=== PATIENT | female | born 1965 | race Caucasian/White ===

== ENCOUNTER 2022-06-21 07:46 | Outpatient (CLI) | payer OTHER, SELFPAY | END 2022-06-21 07:47 | disposition home or self-care (01) | LOC: RAD 07:47 | PROVIDERS: PCP Physician Assistant Medical; Visit Provider Emergency Medicine | DX: R60.0 Localized edema (principal) | CPT/HCPCS: 93306 ==

== ENCOUNTER 2022-09-30 10:20 | Outpatient (CLI) | payer OTHER, SELFPAY ==
[2022-09-30 14:37] LABS: Albumin* 4.6 g/dL (3.3-5.0)
[2022-09-30 14:38] LABS: Chloride* 101 mmol/L (96-114); Potassium* 5.4 mmol/L (3.6-5.1); Sodium* 137 mmol/L (135-149)
[2022-09-30 14:40] LABS: Aspartate Amino Transferase* 23 U/L (12-35); Bilirubin Total* 0.3 mg/dL (0.1-1.5); Carbon Dioxide* 29 mmol/L (20-32); Creatinine* 0.7 mg/dL (0.5-1.5); Estimated Glomerular Filt Rate 101 ml/min; Total Protein* 7.1 g/dL (6.0-8.3)
[2022-09-30 14:41] LABS: Alanine Aminotransferase* 23 U/L (4-35); Alkaline Phosphatase* 99 U/L (40-150); Blood Urea Nitrogen* 13 mg/dL (7-30); Calcium* 9.8 mg/dL (8.4-10.6); Glucose* 94 mg/dL (60-115)
[2022-10-03 18:05] LABS: Protein C Functional 182 % (83-168); Protein S Functional 133 % (57-131)
[2022-10-03 23:52] LABS: von WillebrandFactorAntigen 222 % (52-214); vonWillebrandFactorActivityRCF 282 % (51-215)
--- NOTE | 2022-10-22 09:32 | ONC.NURNOTE ---
Addendum entered by Addis Lim RN 11/21/22 10:11: This patient was discussed with Dr. Mcgregor yesterday, and per Dr. Mcgregor she is not an appropriate referral. She said that we do not seen patients with a family history of clotting, but if patient gets a clot - we are happy to see her. Patient and clinic were notified. Original Note: Received referral from Dr. Paniagua with elevated protein S and C. Patient is being seen by vascular and having second procedure completed on 10/28/2022. [employer] requested that patient have notes from office sent to us, and patient scheduled in January d/t hematology availability.
== END 2022-09-30 10:21 | disposition home or self-care (01) ==
PROVIDERS: PCP Family Medicine; Visit Provider Family Medicine
DX: R06.02 Shortness of breath (principal); R60.0 Localized edema
CPT/HCPCS: 80053; 85240; 85245; 85246; 85303; 85306

== ENCOUNTER 2023-05-12 11:47 | Outpatient (CLI) | payer OTHER, SELFPAY | END 2023-05-12 11:48 | disposition home or self-care (01) | PROVIDERS: PCP Family Medicine; Visit Provider Family Medicine | DX: Z00.00 Encounter for general adult medical examination without abnormal findings (principal); E78.2 Mixed hyperlipidemia; E66.01 Morbid (severe) obesity due to excess calories; Z13.1 Encounter for screening for diabetes mellitus; Z13.6 Encounter for screening for cardiovascular disorders | CPT/HCPCS: 80053; 80061; 82043; 82570; 84443 ==

== ENCOUNTER 2023-05-26 15:31 | Outpatient (CLI) | payer OTHER, SELFPAY | END 2023-05-26 15:32 | disposition home or self-care (01) | LOC: NFLDREF 05-27 10:00 | PROVIDERS: PCP Family Medicine; Referring Provider Family Medicine; Visit Provider Family Medicine | DX: E87.5 Hyperkalemia (principal) | CPT/HCPCS: 80048 ==

== ENCOUNTER 2023-06-05 14:46 | Outpatient (CLI) | payer OTHER, SELFPAY ==
--- NOTE | 2023-06-05 15:00 | CRLHL7_ITS ---
For Patients: As a result of the Cures Act, medical imaging exams and procedure reports are released immediately into your electronic medical record. You may view this report before your referring provider. If you have questions, please contact your health care provider. INDICATION: Edema. History of bilateral lower extremity superficial venous intervention. COMPARISON: None. TECHNIQUE: The bilateral lower extremity veins were examined with figueroa-scale ultrasound, color-flow and Doppler spectral analysis. Compressibility of the veins by transducer pressure was used to evaluate the presence or absence of DVT/SVT at sites per exam specific protocol. Assessment of venous competence was performed by Doppler spectral analysis and was performed and documented at exam specific sites in an upright position for venous insufficiency studies. FINDINGS: DEEP SYSTEM: RIGHT: Vessel: DVT: No. CFV: Competent. DVT: No. SFV Prox: Competent. DVT: No. SFV Mid: Competent. DVT: No. SFV Distal: Competent. DVT: No. Pop: Competent. DVT: No. PTV1: Competent. DVT: No. PTV2: Competent. LEFT: Vessel: DVT: No. CFV: Competent. DVT: No. SFV Prox: Competent. DVT: No. SFV Mid: Competent. DVT: No. SFV Distal: Competent. DVT: No. Pop: Competent. DVT: No. PTV1: Competent. DVT: No. PTV2: Competent. SUPERFICIAL SYSTEM: RIGHT: Vessel: SFJ: 10 mm. Competent. LEFT: SFJ: 8 mm. Competent. Bilateral greater and lesser saphenous veins demonstrate post-intervention changes and are not patent. IMPRESSION: 1. Right lower extremity: -no deep venous thrombosis or incompetence. -history of greater and lesser saphenous vein intervention. Saphenofemoral junction is competent. 2. Left lower extremity: -no deep venous thrombosis or incompetence. -history of greater and lesser saphenous vein intervention. Saphenofemoral junction is competent. Dictated by So Underwood MD @ 06/05/2023 9:33:10 PM XIMENA/Dictated by: So Underwood MD @ 06/05/2023 9:14:00 PM (Electronically Signed)
== END 2023-06-05 14:47 | disposition home or self-care (01) ==
LOC: US 14:46
PROVIDERS: PCP Family Medicine; Visit Provider Family Medicine
DX: R60.0 Localized edema (principal)
CPT/HCPCS: 93970

== ENCOUNTER 2023-07-08 07:51 | Outpatient (CLI) | payer OTHER, SELFPAY ==
--- NOTE | 2023-07-08 08:15 | CRLHL7_ITS ---
For Patients: As a result of the Century Cures Act, medical imaging exams and procedure reports are released immediately into your electronic medical record. You may view this report before your referring provider. If you have questions, please contact your health care provider. BILATERAL SCREENING MAMMOGRAM WITH COMPUTER-AIDED DETECTION AND TOMOSYNTHESIS TECHNIQUE: CC and MLO views were obtained. These mammographic images have been obtained using full-field digital technique. These mammographic images were interpreted with the benefit of computer-aided detection. Breast Tomosynthesis was used in this interpretation. COMPARISON FILM: 08/05/17, 01/15/16 FINDINGS: There are scattered areas of fibroglandular density IMPRESSION: There is no radiographic evidence for malignancy. ASSESSMENT: BI-RADS Category 1: Negative RECOMMENDATION: Routine screening mammogram in 1 year. A lay language report of this examination will be provided to the patient. Ollie Muñiz M.D. Diagnostic Radiologist [email or web address] Transcribed: 1:24 pm DW/Dictated by: Ollie Muñiz MD @ 07/10/2023 12:45:00 PM (Electronically Signed)
== END 2023-07-08 07:52 | disposition home or self-care (01) ==
PROVIDERS: PCP Family Medicine; Visit Provider Family Medicine
DX: Z12.31 Encounter for screening mammogram for malignant neoplasm of breast (principal)
CPT/HCPCS: 77063; 77067